=== PATIENT | male | born 1955 | race Caucasian/White ===

== ENCOUNTER 2022-10-09 16:55 | Emergency (ER) | payer SELFPAY ==
[~2022-10-09] VITALS: Ht 185.4 cm; Wt 140.9 kg
[2022-10-09 16:57] VITALS: BP 144/86
[2022-10-09] MEDS ORDERED: METO1TAB7 PO (17:15)
[2022-10-09] MEDS ORDERED: LIPI20TA PO (17:15)
[2022-10-09] MEDS ORDERED: ASPI325T57 PO (17:15)
[2022-10-09] MEDS ORDERED: LEVO88TA3 PO (17:15)
[2022-10-09] MEDS ORDERED: NITROGLYCERIN 0.4MG SUBL TABLET SL PRN ×2 (17:40→20:30)
[2022-10-09] MEDS ORDERED: ASPIRIN 81MG CHEW TABLET PO ONE (17:40)
[2022-10-09 18:05] LABS: BASO # 0.1 10^3/uL (0.0-0.2); EOS # 0.3 10^3/uL (0.0-0.5); EOS % 4.2 % (0.0-3.0); HEMATOCRIT 41.4 % (42.0-52.0); HEMOGLOBIN 13.7 g/dl (13.5-17.5); LYMPH # 1.6 10^3/uL (1.5-5.0); LYMPH % 25.7 % (24.0-44.0); MEAN CORPUSCULAR HEMOGLOBIN 31.7 pg (27.0-33.0); MEAN CORPUSCULAR HGB CONC 33.1 g/dl (32.0-36.5); MEAN CORPUSCULAR VOLUME 95.8 fl (80.0-96.0); MONO # 0.6 10^3/uL (0.0-0.8); MONO % 8.9 % (2.0-8.0); NEUTROPHILS # 3.7 10^3/uL (1.5-8.5); NEUTROPHILS % 59.7 % (36.0-66.0); PLATELET COUNT, AUTOMATED 189 10^3/uL (150-450); RED BLOOD COUNT 4.32 10^6/uL (4.30-6.10); WHITE BLOOD COUNT 6.2 10^3/uL (4.0-10.0)
[2022-10-09 18:20] LABS: LIPASE 31 U/L (12-53)
[2022-10-09 18:23] LABS: ALBUMIN 3.8 G/DL (3.2-5.2); ALKALINE PHOSPHATASE 53 U/L (46-116); ALT/SGPT 33 U/L (7.0-40); AST/SGOT 20 U/L (<34); BILIRUBIN,DIRECT 0.2 MG/DL (<0.4); BILIRUBIN,TOTAL 0.5 MG/DL (0.3-1.2); BLOOD UREA NITROGEN 18 MG/DL (9-23); CALCIUM LEVEL 9.1 MG/DL (8.3-10.6); CARBON DIOXIDE LEVEL 27 MMOL/L (20-31); CHLORIDE LEVEL 107 MMOL/L (98-107); CK-MB VALUE MASS < 1.0 NG/ML (<3.6); CPK CREATINE PHOSPHOKINASE 105 U/L (46-171); CREATININE FOR GFR 0.99 MG/DL (0.70-1.30); GLOMERULAR FILTRATION RATE > 60.0 (>49); GLUCOSE, FASTING 112 MG/DL (74-106); MB/CK RELATIVE INDEX 0.95 (< OR =4); POTASSIUM SERUM 4.3 MMOL/L (3.5-5.1); SODIUM LEVEL 140 MMOL/L (136-145); TOTAL PROTEIN 6.8 G/DL (5.7-8.2)
[2022-10-09 18:27] LABS: RSV AMPLIFICATION NEGATIVE (NEGATIVE)
[2022-10-09 19:32] LABS: CK-MB VALUE MASS < 1.0 NG/ML (<3.6)
[2022-10-09 19:36] LABS: CPK CREATINE PHOSPHOKINASE 101 U/L (46-171); MB/CK RELATIVE INDEX 0.99 (< OR =4)
[2022-10-09] MEDS ORDERED: CLOPIDOGREL 75 MG TAB PO ONE (20:30)
[2022-10-09] MEDS ORDERED: NITR4TASL SL (20:31)
[2022-10-09] MEDS ORDERED: CLOP75TA99 PO (20:31)
== END 2022-10-09 20:56 | disposition home or self-care (01) ==
LOC: M ED 16:55
DX: R07.89 Other chest pain (principal); I25.10 Atherosclerotic heart disease of native coronary artery without angina pectoris; I25.2 Old myocardial infarction; I10 Essential (primary) hypertension; Z79.82 Long term (current) use of aspirin; Z79.899 Other long term (current) drug therapy